=== PATIENT | female | born 1950 | race Caucasian/White ===

== ENCOUNTER 2022-01-11 15:43 | Emergency (ER) | payer MEDICARE ==
[2022-01-11 19:10] LABS: HEMOGLOBIN 10.5 gm/dl (12.3-15.3); RED BLOOD COUNT 3.55 M/UL (4.00-5.10); WHITE BLOOD COUNT 7.8 K/UL (4.5-11.0)
[2022-01-11] MEDS ORDERED: OMNICEF 300 MG300 MG PO (22:42)
== END 2022-01-11 23:02 | disposition home or self-care (01) ==
LOC: ER1 15:43
PROVIDERS: Physician Assistant Medical
DX: J90 Pleural effusion, not elsewhere classified (principal); N39.0 Urinary tract infection, site not specified; E11.9 Type 2 diabetes mellitus without complications; I51.9 Heart disease, unspecified; Z95.1 Presence of aortocoronary bypass graft; Z88.5 Allergy status to narcotic agent; Z88.8 Allergy status to other drugs, medicaments and biological substances
CPT/HCPCS: 36600; 51702; 71045; 80053; 81001; 82550; 82553; 82803; 83605; 83880; 84484; 85025; 85610; 85730; 87040; 93005; 96374; 99285; J0696; Q9967